=== PATIENT | male | born 1950 | race Hispanic/Latino ===

== ENCOUNTER 2018-02-24 15:15 | Emergency (ER) | payer MEDICARE ==
[~2018-02-24 15:15] MED LIST: AEC81 PO; BIMA12.5OS OD; BRIM5DRO OP; CHOL100040 PO; CINA30 PO; FAMO20TA8 PO; LOSA50TA37 PO; LOVA20TA3 PO; SEVE800T7 PO; SULF1TAB42 PO; TAMS-1 PO; VIT1TABL75 PO
[2018-02-24] MEDS ORDERED: MAG HYDROX/AL HYDROX/SIMETH ES 30 ML SUSP UDCUP ONE (16:07)
[2018-02-24] MEDS ORDERED: ONDANSETRON ODT 4 MG TAB ONE (16:08)
[2018-02-24 16:33] LABS: BASOPHILS % (AUTO) 0.3 % (0.0-5.0); EOSINOPHILS % (AUTO) 0.3 % (0.0-8.0); HEMATOCRIT 30.5 % (42-54); MEAN CORPUSCULAR HEMOGLOBIN 33.7 pg (27.0-33.0); MEAN CORPUSCULAR HGB CONC 35.8 g/dL (32.0-36.0); MEAN CORPUSCULAR VOLUME 94.2 fL (79-99); MONOCYTES % (AUTO) 6.3 % (3.0-13.0); NEUTROPHILS % (AUTO) 84.1 % (40.0-77.0); PLATELET COUNT (AUTO) 180 K/uL (130-400); RED BLOOD CELL COUNT(AUTO) 3.24 MIL/uL (4.50-6.20); RED CELL DISTRIBUTION WIDTH 14.6 % (11.0-15.5); WHITE BLOOD COUNT (AUTO) 13.9 K/uL (4.8-10.8)
[2018-02-24 16:45] LABS: CREATININE 4.9 mg/dL (0.5-1.5); POTASSIUM 4.3 mmol/L (3.5-5.1)
[2018-02-24 16:58] LABS: ALBUMIN 3.5 g/dL (3.5-5.0); BILIRUBIN,TOTAL 0.7 mg/dL (0.2-1.0); CREATINE KINASE MB 0.8 ng/mL (0.5-3.6); TOTAL PROTEIN, SERUM 7.1 g/dL (6.0-8.3)
== END 2018-02-24 18:13 | disposition home or self-care (01) ==
LOC: EDH 15:15
DX: K30 Functional dyspepsia (principal); I12.0 Hypertensive chronic kidney disease with stage 5 chronic kidney disease or end stage renal disease; E11.22 Type 2 diabetes mellitus with diabetic chronic kidney disease; N18.6 End stage renal disease; Z99.2 Dependence on renal dialysis; Z86.73 Personal history of transient ischemic attack (TIA), and cerebral infarction without residual deficits; Z87.891 Personal history of nicotine dependence
CPT/HCPCS: 36415; 80053; 82550; 82553; 83690; 84484; 85025; 86677; 93005

== ENCOUNTER 2018-02-26 07:56 | Inpatient (IN) | payer MEDICARE ==
[~2018-02-26] VITALS: Ht 167.6 cm; Wt 87.5 kg
[2018-02-26 09:21] LABS: BASOPHILS % (AUTO) 0.3 % (0.0-5.0); EOSINOPHILS % (AUTO) 0.7 % (0.0-8.0); HEMATOCRIT 29.2 % (42-54); LYMPHOCYTES % (AUTO) 8.8 % (21.0-51.0); MEAN CORPUSCULAR HEMOGLOBIN 34.1 pg (27.0-33.0); MEAN CORPUSCULAR HGB CONC 35.7 g/dL (32.0-36.0); MEAN CORPUSCULAR VOLUME 95.6 fL (79-99); MONOCYTES % (AUTO) 7.4 % (3.0-13.0); NEUTROPHILS % (AUTO) 82.8 % (40.0-77.0); PLATELET COUNT (AUTO) 202 K/uL (130-400); RED BLOOD CELL COUNT(AUTO) 3.05 MIL/uL (4.50-6.20); RED CELL DISTRIBUTION WIDTH 14.7 % (11.0-15.5); WHITE BLOOD COUNT (AUTO) 12.3 K/uL (4.8-10.8)
[2018-02-26 09:36] LABS: INR 1.05 (0.85-1.15); PARTIAL THROMBOPLASTIN TIME 29.3 SEC (26.3-35.5)
[2018-02-26 09:43] LABS: ALBUMIN 3.1 g/dL (3.5-5.0); BILIRUBIN,TOTAL 0.5 mg/dL (0.2-1.0); POTASSIUM 4.5 mmol/L (3.5-5.1); TOTAL PROTEIN, SERUM 6.8 g/dL (6.0-8.3)
[2018-02-26 09:45] LABS: CREATININE 8.5 mg/dL (0.5-1.5)
[2018-02-26 09:53] LABS: APPEARANCE,URINE Cloudy (CLEAR); BILIRUBIN,URINE Negative (NEGATIVE); COLOR,URINE Yellow (YELLOW); GLUCOSE, URINE (UA) Negative (NEGATIVE); KETONES,URINE Negative (NEGATIVE); LEUKOCYTE ESTERASE ,URINE Large (NEGATIVE); NITRATE,URINE Negative (NEGATIVE); OCCULT BLOOD,URINE Small (NEGATIVE); PROTEIN,URINE POS 2+ (NEGATIVE); UROBILINOGEN,URINE 0.2 mg/dL (0.2-1.0)
[2018-02-26 09:56] LABS: PH,URINE 8.5 (5.0-8.0)
[2018-02-26 10:07] LABS: BACTERIA,URINE Few /HPF (None Seen); SQUAMOUS EPITHELIAL CELL,UR 0-2 /HPF (0-2); WBC,URINE 51-100 /HPF (0-1)
[2018-02-26] MEDS ORDERED: METRONIDAZOLE 500MG/100ML BAG 100 ML ONE (10:52)
[2018-02-26 11:09] LABS: OCCULT BLOOD STOOL SINGLE ONLY POSITIVE (NEGATIVE)
[2018-02-26] MEDS ORDERED: LEVOFLOXACIN 500 MG/D5W 100 ML 100 ML ONE (11:55)
[2018-02-26 20:00] VITALS: BP 135/59
[2018-02-26] MEDS ORDERED: ASPI-555 PO (20:07)
[2018-02-26] MEDS ORDERED: ACETAMINOPHEN 325 MG TAB ONE (22:20)
[2018-02-26] MEDS ORDERED: GLUCAGON 1MG KIT 1 MG ML IM PRN (22:30)
[2018-02-26] MEDS ORDERED: ACETAMINOPHEN 325 MG TAB PO PRN ×2 (22:30)
[2018-02-26] MEDS ORDERED: ONDANSETRON HCL MDV 20ML 2 MG/ML VIAL IVP PRN (22:30)
[2018-02-26] MEDS ORDERED: MORPHINE SULFATE 2 MG/ML 1ML SYG IVP PRN ×2 (22:30)
[2018-02-26] MEDS ORDERED: DEXTROSE 50%-WATER 50 ML DISP.SYRIN IV PRN (22:30)
[2018-02-27] VITALS (7 sets, daily range): BP systolic 100–136; BP diastolic 51–78
[2018-02-27] MEDS: METRONIDAZOLE 500MG/100ML BAG 100 ML IVPB SCH ×3 (00:49→16:32)
[2018-02-27 04:32] LABS: HEMATOCRIT 30.5 % (42-54); MEAN CORPUSCULAR HEMOGLOBIN 32.9 pg (27.0-33.0); MEAN CORPUSCULAR HGB CONC 34.8 g/dL (32.0-36.0); MEAN CORPUSCULAR VOLUME 94.7 fL (79-99); PLATELET COUNT (AUTO) 197 K/uL (130-400); RED BLOOD CELL COUNT(AUTO) 3.22 MIL/uL (4.50-6.20); RED CELL DISTRIBUTION WIDTH 14.6 % (11.0-15.5); WHITE BLOOD COUNT (AUTO) 8.3 K/uL (4.8-10.8)
[2018-02-27 04:57] LABS: BILIRUBIN,TOTAL 0.6 mg/dL (0.2-1.0); MAGNESIUM 2.8 mg/dL (1.80-2.40); PHOSPHORUS 2.8 mg/dL (2.5-4.9); POTASSIUM 4.7 mmol/L (3.5-5.1); THYROID STIMULATING HORMONE 1.07 uIU/mL (0.36-3.74); TOTAL PROTEIN, SERUM 6.7 g/dL (6.0-8.3)
[2018-02-27 05:01] LABS: CREATININE 9.4 mg/dL (0.5-1.5)
[2018-02-27] MEDS: INSULIN R PO SS1/2 SQ SCH ×4 (06:18→20:22)
[2018-02-27] MEDS: SEVELAMER HCL 800 MG TABLET PO SCH ×2 (12:48→16:34)
[2018-02-27] MEDS: BRIMONIDINE TARTRATE OP SCH (17:00)
[2018-02-27] MEDS: TIMOLOL OP SCH (17:00)
[2018-02-27] MEDS: ***HM*** (Bimatoprost (Lumigan 0.01% Ophth Soln) 1 DROP) OD SCH (21:00)
[2018-02-27] MEDS: LEVOFLOXACIN 500 MG/D5W 100 ML 100 ML IV SCH (21:25)
[2018-02-27] MEDS: ATORVASTATIN CALCIUM 10 MG TABLET PO SCH (21:26)
[2018-02-28] MEDS: METRONIDAZOLE 500MG/100ML BAG 100 ML IVPB SCH ×3 (00:44→16:06)
[2018-02-28 03:00] VITALS: BP 122/61
[2018-02-28] MEDS: INSULIN R PO SS1/2 SQ SCH ×4 (05:31→21:00)
[2018-02-28 07:44] LABS: HEMATOCRIT 26.6 % (42-54); MEAN CORPUSCULAR HEMOGLOBIN 33.4 pg (27.0-33.0); MEAN CORPUSCULAR VOLUME 95.4 fL (79-99); PLATELET COUNT (AUTO) 192 K/uL (130-400); RED BLOOD CELL COUNT(AUTO) 2.79 MIL/uL (4.50-6.20); RED CELL DISTRIBUTION WIDTH 14.4 % (11.0-15.5); WHITE BLOOD COUNT (AUTO) 7.4 K/uL (4.8-10.8)
[2018-02-28] MEDS ORDERED: ALBUMIN (HUMAN) 25% 100 ML IV PRN (07:45)
[2018-02-28] MEDS ORDERED: SODIUM CHLORIDE 0.9% 1000ML 1,000 ML IV PRN (07:45)
[2018-02-28] MEDS ORDERED: 0.9% SODIUM CHLORIDE 250 ML IV BAG IV PRN (07:45)
[2018-02-28 07:55] LABS: ALBUMIN 2.6 g/dL (3.5-5.0); BILIRUBIN,TOTAL 0.5 mg/dL (0.2-1.0); POTASSIUM 4.4 mmol/L (3.5-5.1); TOTAL PROTEIN, SERUM 5.9 g/dL (6.0-8.3)
[2018-02-28 07:56] VITALS: BP 122/53
[2018-02-28] MEDS: BRIMONIDINE TARTRATE OP SCH ×2 (08:00→16:07)
[2018-02-28] MEDS: TIMOLOL OP SCH ×2 (08:00→16:07)
[2018-02-28 08:13] LABS: CREATININE 10.3 mg/dL (0.5-1.5)
[2018-02-28] MEDS ORDERED: ASPIRIN 81 MG EC TAB PO SCH (09:00)
[2018-02-28] MEDS: VITAMIN B COMPLEX 1 CAPSULE PO SCH (10:01)
[2018-02-28] MEDS: SEVELAMER HCL 800 MG TABLET PO SCH ×3 (10:01→16:27)
[2018-02-28] MEDS: ASPIRIN 81 MG EC TAB PO SCH (10:01)
[2018-02-28] MEDS: TAMSULOSIN HCL 0.4 MG CAP.ER.24H PO SCH (10:02)
[2018-02-28] MEDS: LOSARTAN 50 MG TABLET PO SCH (10:03)
[2018-02-28 11:38] VITALS: BP 144/66
[2018-02-28 16:00] VITALS: BP 126/74
[2018-02-28 19:45] VITALS: BP 119/58
[2018-02-28] MEDS: ATORVASTATIN CALCIUM 10 MG TABLET PO SCH (20:07)
[2018-02-28] MEDS: ***HM*** (Bimatoprost (Lumigan 0.01% Ophth Soln) 1 DROP) OD SCH (20:13)
[2018-02-28 23:05] VITALS: BP 118/56
[2018-03-01] MEDS: METRONIDAZOLE 500MG/100ML BAG 100 ML IVPB SCH ×3 (00:47→18:21)
[2018-03-01 03:55] VITALS: BP 125/59
[2018-03-01 05:00] LABS: CREATININE 6.7 mg/dL (0.5-1.5); POTASSIUM 5.8 mmol/L (3.5-5.1)
[2018-03-01 05:09] LABS: HEMATOCRIT 28.1 % (42-54); MEAN CORPUSCULAR HEMOGLOBIN 32.5 pg (27.0-33.0); MEAN CORPUSCULAR HGB CONC 34.5 g/dL (32.0-36.0); MEAN CORPUSCULAR VOLUME 94.2 fL (79-99); PLATELET COUNT (AUTO) 217 K/uL (130-400); RED BLOOD CELL COUNT(AUTO) 2.98 MIL/uL (4.50-6.20); RED CELL DISTRIBUTION WIDTH 14.7 % (11.0-15.5); WHITE BLOOD COUNT (AUTO) 7.6 K/uL (4.8-10.8)
[2018-03-01] MEDS: INSULIN R PO SS1/2 SQ SCH ×4 (06:15→21:00)
[2018-03-01] MEDS: BRIMONIDINE TARTRATE OP SCH ×2 (08:00→17:00)
[2018-03-01] MEDS: TIMOLOL OP SCH ×2 (08:00→17:00)
[2018-03-01 08:27] VITALS: BP 121/60
[2018-03-01] MEDS: VITAMIN B COMPLEX 1 CAPSULE PO SCH (08:45)
[2018-03-01] MEDS: LOSARTAN 50 MG TABLET PO SCH (08:45)
[2018-03-01] MEDS: TAMSULOSIN HCL 0.4 MG CAP.ER.24H PO SCH (08:45)
[2018-03-01] MEDS: ASPIRIN 81 MG EC TAB PO SCH (08:45)
[2018-03-01] MEDS: SEVELAMER HCL 800 MG TABLET PO SCH ×3 (08:45→17:06)
[2018-03-01 11:53] VITALS: BP 115/56
[2018-03-01 16:06] VITALS: BP 134/62
[2018-03-01 19:10] VITALS: BP 104/50
[2018-03-01] MEDS: LEVOFLOXACIN 500 MG/D5W 100 ML 100 ML IV SCH (20:07)
[2018-03-01] MEDS: ATORVASTATIN CALCIUM 10 MG TABLET PO SCH (22:16)
[2018-03-01] MEDS: ***HM*** (Bimatoprost (Lumigan 0.01% Ophth Soln) 1 DROP) OD SCH (22:21)
[2018-03-02 00:22] VITALS: BP 111/83
[2018-03-02] MEDS: METRONIDAZOLE 500MG/100ML BAG 100 ML IVPB SCH ×2 (01:05→10:31)
[2018-03-02 04:14] VITALS: BP 116/51
[2018-03-02 05:10] LABS: HEMATOCRIT 35.8 % (42-54); MEAN CORPUSCULAR HEMOGLOBIN 32.1 pg (27.0-33.0); MEAN CORPUSCULAR HGB CONC 33.7 g/dL (32.0-36.0); MEAN CORPUSCULAR VOLUME 95.4 fL (79-99); PLATELET COUNT (AUTO) 184 K/uL (130-400); RED BLOOD CELL COUNT(AUTO) 3.75 MIL/uL (4.50-6.20); RED CELL DISTRIBUTION WIDTH 14.8 % (11.0-15.5)
[2018-03-02 05:14] LABS: CREATININE 5.3 mg/dL (0.5-1.5); PHOSPHORUS 3.8 mg/dL (2.5-4.9); POTASSIUM 4.9 mmol/L (3.5-5.1)
[2018-03-02] MEDS: INSULIN R PO SS1/2 SQ SCH ×2 (07:30→11:10)
[2018-03-02] MEDS: BRIMONIDINE TARTRATE OP SCH (08:00)
[2018-03-02] MEDS: TIMOLOL OP SCH (08:00)
[2018-03-02 08:30] VITALS: BP 119/56
[2018-03-02] MEDS: VITAMIN B COMPLEX 1 CAPSULE PO SCH (10:31)
[2018-03-02] MEDS: TAMSULOSIN HCL 0.4 MG CAP.ER.24H PO SCH (10:31)
[2018-03-02] MEDS: ASPIRIN 81 MG EC TAB PO SCH (10:31)
[2018-03-02] MEDS: SEVELAMER HCL 800 MG TABLET PO SCH ×2 (10:31→12:38)
[2018-03-02] MEDS: LOSARTAN 50 MG TABLET PO SCH (10:31)
[2018-03-02 12:11] VITALS: BP 112/61
[2018-03-02 12:15] VITALS: BP 102/53
[2018-03-02] MEDS ORDERED: METR500T PO (13:59)
[2018-03-02] MEDS ORDERED: LEVO500T2 PO (13:59)
== END 2018-03-02 17:23 | disposition home or self-care (01) | DRG 391 ==
LOC: EDH 07:56 → EDHIP 11:15 → 3CH 19:39
PROVIDERS: ADMIT Internal Medicine Nephrology; ATTEND Internal Medicine Nephrology
PROC: 5A1D70Z Performance of Urinary Filtration, Intermittent, Less than 6 Hours Per Day (ICD-10-PCS; principal; 2018-02-28)
PROC: 5A1D70Z Performance of Urinary Filtration, Intermittent, Less than 6 Hours Per Day (ICD-10-PCS; 2018-03-01)
DX: K57.32 Diverticulitis of large intestine without perforation or abscess without bleeding (principal); N18.6 End stage renal disease; E11.21 Type 2 diabetes mellitus with diabetic nephropathy; E11.51 Type 2 diabetes mellitus with diabetic peripheral angiopathy without gangrene; I69.354 Hemiplegia and hemiparesis following cerebral infarction affecting left non-dominant side; I12.0 Hypertensive chronic kidney disease with stage 5 chronic kidney disease or end stage renal disease; E11.22 Type 2 diabetes mellitus with diabetic chronic kidney disease; E78.5 Hyperlipidemia, unspecified; D64.9 Anemia, unspecified; D72.829 Elevated white blood cell count, unspecified; I25.10 Atherosclerotic heart disease of native coronary artery without angina pectoris; Z99.2 Dependence on renal dialysis
CPT/HCPCS: 36415; 71045; 74176; 80048; 80053; 81001; 82150; 82270; 82550; 82553; 82948; 83690; 83735; 84100; 84443; 84484; 85025; 85027; 85610; 85730; 86677; 87046; 87177; 87205; 87324; 90935; 93005; J1956; J3490; J7030

== ENCOUNTER 2018-07-20 20:28 | Inpatient (IN) | payer MEDICARE ==
[~2018-07-20] VITALS: Ht 180.3 cm; Wt 82.2 kg
[~2018-07-20 20:28] MED LIST changes: -AEC81 PO; +ASPI-555 PO; -BIMA12.5OS OD; -BRIM5DRO OP; -CHOL100040 PO; +CHOL100046 PO; -CINA30 PO; -FAMO20TA8 PO; +FERR325T22 PO; +LOSA50TA25 PO; -LOSA50TA37 PO; -LOVA20TA3 PO; +LOVA40TA2 PO; -SULF1TAB42 PO
[2018-07-20 22:03] LABS: BASOPHILS % (AUTO) 0.3 % (0.0-5.0); HEMATOCRIT 28.6 % (42-54); LYMPHOCYTES % (AUTO) 4.6 % (21.0-51.0); MEAN CORPUSCULAR HEMOGLOBIN 30.8 pg (27.0-33.0); MEAN CORPUSCULAR VOLUME 93.4 fL (79-99); MONOCYTES % (AUTO) 7.5 % (3.0-13.0); NEUTROPHILS % (AUTO) 87.6 % (40.0-77.0); PLATELET COUNT (AUTO) 163 K/uL (130-400); RED BLOOD CELL COUNT(AUTO) 3.06 MIL/uL (4.50-6.20); RED CELL DISTRIBUTION WIDTH 15.5 % (11.0-15.5); WHITE BLOOD COUNT (AUTO) 17.1 K/uL (4.8-10.8)
[2018-07-20 22:09] LABS: APPEARANCE,URINE Clear (CLEAR); BILIRUBIN,URINE Negative (NEGATIVE); COLOR,URINE Yellow (YELLOW); GLUCOSE, URINE (UA) Negative (NEGATIVE); KETONES,URINE Negative (NEGATIVE); LEUKOCYTE ESTERASE ,URINE Moderate (NEGATIVE); NITRATE,URINE Negative (NEGATIVE); OCCULT BLOOD,URINE Moderate (NEGATIVE); PH,URINE >=9.0 (5.0-8.0); PROTEIN,URINE POS 2+ (NEGATIVE); UROBILINOGEN,URINE 0.2 mg/dL (0.2-1.0)
[2018-07-20 22:15] LABS: INR 1.1 (0.85-1.15); PARTIAL THROMBOPLASTIN TIME 31.9 SEC (26.3-35.5); PROTHROMBIN TIME 11.5 SEC (9.6-11.6)
[2018-07-20 22:20] LABS: CREATININE 7.6 mg/dL (0.5-1.5); POTASSIUM 4.7 mmol/L (3.5-5.1)
[2018-07-20] MEDS ORDERED: ZOSYN 3.375GM+NS 50ML 50 ML IV ONE (22:23)
[2018-07-20] MEDS ORDERED: SODIUM CHLORIDE 0.9% 50 ML IV ONE (22:24)
[2018-07-20] MEDS: ZOSYN 3.375GM+NS 50ML 50 ML IV SCH (22:30)
[2018-07-20 22:34] LABS: BACTERIA,URINE None Seen /HPF (None Seen); MUCUS,URINE Rare LPF (None Seen); RBC,URINE 0-1 /HPF (0-1); SQUAMOUS EPITHELIAL CELL,UR Rare /HPF (0-2)
[2018-07-20] MEDS ORDERED: VANCOMYCIN 1GM+NS 250ML 500 ML IV ONE (22:38)
[2018-07-20 22:45] LABS: ALBUMIN 3.1 g/dL (3.5-5.0); BILIRUBIN,TOTAL 0.6 mg/dL (0.2-1.0); CREATINE KINASE MB 0.7 ng/mL (0.5-3.6); TOTAL PROTEIN, SERUM 6.8 g/dL (6.0-8.3); TROPONIN I 0.07 ng/mL (0.00-0.06)
[2018-07-20] MEDS ORDERED: DEXTROSE 50%-WATER 50 ML DISP.SYRIN IV PRN (23:45)
[2018-07-20] MEDS ORDERED: VANCOMYCIN PROTOCOL PER PHARMACY IV SCH (23:45)
[2018-07-20] MEDS ORDERED: GLUCAGON 1MG KIT 1 MG ML IM PRN (23:45)
[2018-07-20] MEDS ORDERED: ONDANSETRON HCL MDV 20ML 2 MG/ML VIAL IVP PRN (23:45)
[2018-07-21] VITALS (7 sets, daily range): BP systolic 97–145; BP diastolic 43–73
[2018-07-21] MEDS: ACETAMINOPHEN 325 MG TAB PO PRN ×3 (01:23→20:22)
[2018-07-21] MEDS: INSULIN R PO SS1 SQ SCH ×4 (06:21→20:30)
[2018-07-21] MEDS: FAMOTIDINE/PF 20 MG/2 ML VIAL IV SCH (09:34)
[2018-07-21] MEDS ORDERED: FOLI0.8T22 PO (10:03)
[2018-07-21] MEDS: SEVELAMER HCL 800 MG TABLET PO SCH ×2 (12:17→16:52)
[2018-07-21] MEDS ORDERED: SODIUM CHLORIDE 0.9% 1000ML 1,000 ML IV ONE (12:32)
[2018-07-21] MEDS ORDERED: SODIUM CHLORIDE 0.9% 1000ML 1,000 ML IV PRN (13:45)
[2018-07-21] MEDS ORDERED: ALBUMIN (HUMAN) 25% 100 ML IV PRN (13:45)
[2018-07-21] MEDS ORDERED: 0.9% SODIUM CHLORIDE 250 ML IV BAG IV PRN (13:45)
[2018-07-21] MEDS: ZOSYN 3.375GM+NS 50ML 50 ML IV SCH (16:53)
[2018-07-21] MEDS: GUAIFENESIN SUGAR-FREE 100 MG/5 ML UDCUP PO PRN (20:21)
[2018-07-21] MEDS: ATORVASTATIN CALCIUM 10 MG TABLET PO SCH (20:22)
[2018-07-21] MEDS: FERROUS SULFATE 325 MG TABLET.DR PO SCH (20:22)
[2018-07-21] MEDS ORDERED: GENTAMICIN SULFATE 80 MG in SODIUM CHLORIDE 0.9% 100 ML IV SCH (23:30)
[2018-07-22] MEDS: ZOSYN 3.375GM+NS 50ML 50 ML IV SCH ×3 (00:15→23:42)
[2018-07-22] MEDS: IPRATROPIUM/ALBUTEROL SULFATE 3 ML SOLUTION IH ONE ×2 (00:57→01:39)
[2018-07-22] MEDS: GUAIFENESIN SUGAR-FREE 100 MG/5 ML UDCUP PO PRN ×3 (01:43→10:52)
[2018-07-22] MEDS: ACETAMINOPHEN 325 MG TAB PO PRN ×2 (01:44→22:57)
[2018-07-22] MEDS: IPRATROPIUM/ALBUTEROL SULFATE 3 ML SOLUTION IH SCH ×7 (02:00→21:45)
[2018-07-22] MEDS ORDERED: GENTAMICIN SULFATE 80 MG/2 ML VIAL ONE (02:16)
[2018-07-22 03:20] VITALS: BP 93/49
[2018-07-22] MEDS ORDERED: SODIUM CHLORIDE 0.9% 100 ML IV ONE (04:04)
[2018-07-22 05:36] LABS: HEMATOCRIT 25.1 % (42-54); MEAN CORPUSCULAR HGB CONC 34.3 g/dL (32.0-36.0); MEAN CORPUSCULAR VOLUME 93.4 fL (79-99); PLATELET COUNT (AUTO) 135 K/uL (130-400); RED BLOOD CELL COUNT(AUTO) 2.69 MIL/uL (4.50-6.20); RED CELL DISTRIBUTION WIDTH 15.6 % (11.0-15.5); WHITE BLOOD COUNT (AUTO) 9.2 K/uL (4.8-10.8)
[2018-07-22 05:40] LABS: BAND NEUTROPHILS % (MANUAL) 5 % (0-2); LYMPHOCYTES % (MANUAL) 10 % (22-44); MONOCYTES % (MANUAL) 9 % (2-9); SEGMENTED NEUTROPHILS % 76 % (40-70)
[2018-07-22 05:41] LABS: MAN.DIFF COMMENT-IMPRESSION MANUAL DIFFERENTIAL; PLATELET MORPHOLOGY COMMENT SLIGHTLY DECREASED
[2018-07-22 05:45] LABS: CREATININE 6.3 mg/dL (0.5-1.5); POTASSIUM 4.1 mmol/L (3.5-5.1)
[2018-07-22] MEDS: INSULIN R PO SS1 SQ SCH ×4 (06:12→20:46)
[2018-07-22] MEDS: SEVELAMER HCL 800 MG TABLET PO SCH ×3 (08:06→16:48)
[2018-07-22 08:26] VITALS: BP 94/41
[2018-07-22] MEDS: **HM** VIT D3 1000 UNITS PO SCH (09:00)
[2018-07-22] MEDS: FERROUS SULFATE 325 MG TABLET.DR PO SCH ×2 (09:54→20:46)
[2018-07-22] MEDS: LOSARTAN 50 MG TABLET PO SCH (09:54)
[2018-07-22] MEDS: FOLIC ACID/VITAMIN B COMP W-C 1 MG CAPSULE PO SCH (09:54)
[2018-07-22] MEDS: FAMOTIDINE/PF 20 MG/2 ML VIAL IV SCH (09:55)
[2018-07-22] MEDS: TAMSULOSIN HCL 0.4 MG CAP.ER.24H PO SCH (09:55)
[2018-07-22] MEDS: ASPIRIN 81MG TAB.CHEW PO SCH (09:58)
[2018-07-22] MEDS: ENOXAPARIN SODIUM 30 MG/0.3 ML SQ SCH (10:03)
[2018-07-22 12:01] VITALS: BP 106/57
[2018-07-22 16:05] VITALS: BP 120/79
[2018-07-22 19:28] VITALS: BP 117/55
[2018-07-22] MEDS: ATORVASTATIN CALCIUM 10 MG TABLET PO SCH (20:46)
[2018-07-22 23:26] VITALS: BP 105/49
[2018-07-23] MEDS: IPRATROPIUM/ALBUTEROL SULFATE 3 ML SOLUTION IH SCH ×6 (02:22→21:27)
[2018-07-23 03:28] VITALS: BP 81/39
[2018-07-23 06:04] LABS: MEAN CORPUSCULAR HEMOGLOBIN 32.4 pg (27.0-33.0); MEAN CORPUSCULAR HGB CONC 34.8 g/dL (32.0-36.0); MEAN CORPUSCULAR VOLUME 93.2 fL (79-99); PLATELET COUNT (AUTO) 162 K/uL (130-400); RED BLOOD CELL COUNT(AUTO) 2.57 MIL/uL (4.50-6.20); RED CELL DISTRIBUTION WIDTH 15.8 % (11.0-15.5); WHITE BLOOD COUNT (AUTO) 8.3 K/uL (4.8-10.8)
[2018-07-23 06:22] LABS: ALBUMIN 2.1 g/dL (3.5-5.0); BILIRUBIN,DIRECT 0.2 mg/dL (0.0-0.3); BILIRUBIN,TOTAL 0.6 mg/dL (0.2-1.0); POTASSIUM 4.1 mmol/L (3.5-5.1); TOTAL PROTEIN, SERUM 5.9 g/dL (6.0-8.3)
[2018-07-23 06:25] LABS: CREATININE 8.2 mg/dL (0.5-1.5)
[2018-07-23] MEDS: INSULIN R PO SS1 SQ SCH ×4 (06:53→20:36)
[2018-07-23 07:30] VITALS: BP 121/59
[2018-07-23 08:19] LABS: BASOPHILS % (MANUAL) 1 % (0-2); EOSINOPHILS % (MANUAL) 2 % (1-6); LYMPHOCYTES % (MANUAL) 10 % (22-44); MAN.DIFF COMMENT-IMPRESSION MANUAL DIFFERENTIAL; MONOCYTES % (MANUAL) 7 % (2-9); PLATELET MORPHOLOGY COMMENT ADEQUATE; SEGMENTED NEUTROPHILS % 80 % (40-70)
[2018-07-23] MEDS: **HM** VIT D3 1000 UNITS PO SCH (09:00)
[2018-07-23] MEDS: TAMSULOSIN HCL 0.4 MG CAP.ER.24H PO SCH (09:01)
[2018-07-23] MEDS: LOSARTAN 50 MG TABLET PO SCH (09:01)
[2018-07-23] MEDS: SEVELAMER HCL 800 MG TABLET PO SCH ×3 (09:01→17:24)
[2018-07-23] MEDS: FAMOTIDINE/PF 20 MG/2 ML VIAL IV SCH (09:01)
[2018-07-23] MEDS: ASPIRIN 81MG TAB.CHEW PO SCH (09:01)
[2018-07-23] MEDS: FERROUS SULFATE 325 MG TABLET.DR PO SCH ×2 (09:01→20:35)
[2018-07-23] MEDS: FOLIC ACID/VITAMIN B COMP W-C 1 MG CAPSULE PO SCH (09:01)
[2018-07-23] MEDS: ENOXAPARIN SODIUM 30 MG/0.3 ML SQ SCH (09:02)
[2018-07-23] MEDS ORDERED: VANCOMYCIN 1.25 GM in SODIUM CHLORIDE 0.9% 250 ML IV SCH (09:45)
[2018-07-23 11:00] VITALS: BP 109/53
[2018-07-23] MEDS: ZOSYN 3.375GM+NS 50ML 50 ML IV SCH ×2 (12:15→23:35)
[2018-07-23 16:00] VITALS: BP 111/68
[2018-07-23] MEDS: GUAIFENESIN SUGAR-FREE 100 MG/5 ML UDCUP PO PRN (19:14)
[2018-07-23 20:00] VITALS: BP 112/53
[2018-07-23] MEDS: ATORVASTATIN CALCIUM 10 MG TABLET PO SCH (20:35)
[2018-07-23] MEDS: ACETAMINOPHEN 325 MG TAB PO PRN (20:37)
[2018-07-24] VITALS: BP 124/56
[2018-07-24] MEDS: IPRATROPIUM/ALBUTEROL SULFATE 3 ML SOLUTION IH SCH ×6 (01:23→21:13)
[2018-07-24 04:00] VITALS: BP 119/58
[2018-07-24] MEDS: GUAIFENESIN SUGAR-FREE 100 MG/5 ML UDCUP PO PRN ×4 (04:04→20:22)
[2018-07-24] MEDS: ACETAMINOPHEN 325 MG TAB PO PRN ×3 (04:05→20:24)
[2018-07-24 05:13] LABS: HEMATOCRIT 24.4 % (42-54); MEAN CORPUSCULAR HEMOGLOBIN 31.6 pg (27.0-33.0); PLATELET COUNT (AUTO) 150 K/uL (130-400); RED BLOOD CELL COUNT(AUTO) 2.62 MIL/uL (4.50-6.20); RED CELL DISTRIBUTION WIDTH 15.5 % (11.0-15.5); WHITE BLOOD COUNT (AUTO) 8.6 K/uL (4.8-10.8)
[2018-07-24 05:26] LABS: POTASSIUM 4.4 mmol/L (3.5-5.1)
[2018-07-24 05:39] LABS: CREATININE 9.8 mg/dL (0.5-1.5)
[2018-07-24] MEDS: INSULIN R PO SS1 SQ SCH ×4 (05:53→20:44)
[2018-07-24 07:30] VITALS: BP 110/58
[2018-07-24] MEDS: SEVELAMER HCL 800 MG TABLET PO SCH ×3 (08:00→15:54)
[2018-07-24] MEDS: **HM** VIT D3 1000 UNITS PO SCH (08:19)
[2018-07-24 11:00] VITALS: BP 134/64
[2018-07-24] MEDS: FOLIC ACID/VITAMIN B COMP W-C 1 MG CAPSULE PO SCH (11:57)
[2018-07-24] MEDS: TAMSULOSIN HCL 0.4 MG CAP.ER.24H PO SCH (11:57)
[2018-07-24] MEDS: FERROUS SULFATE 325 MG TABLET.DR PO SCH ×2 (11:57→20:22)
[2018-07-24] MEDS: ZOSYN 3.375GM+NS 50ML 50 ML IV SCH (11:57)
[2018-07-24] MEDS: ASPIRIN 81MG TAB.CHEW PO SCH (11:57)
[2018-07-24] MEDS: LOSARTAN 50 MG TABLET PO SCH (11:57)
[2018-07-24] MEDS: ENOXAPARIN SODIUM 30 MG/0.3 ML SQ SCH (11:58)
[2018-07-24] MEDS: FAMOTIDINE/PF 20 MG/2 ML VIAL IV SCH (12:05)
[2018-07-24 16:00] VITALS: BP 120/65
[2018-07-24] MEDS ORDERED: GENTAMICIN 80 MG/NS 100 ML PB 100 ML IV SCH ×2 (19:15→20:01)
[2018-07-24] MEDS ORDERED: LACTULOSE 20 GM/30 ML UDCUP PO PRN (19:15)
[2018-07-24 20:00] VITALS: BP 102/51
[2018-07-24] MEDS: ATORVASTATIN CALCIUM 10 MG TABLET PO SCH (20:22)
[2018-07-25] VITALS (7 sets, daily range): BP systolic 107–142; BP diastolic 49–76
[2018-07-25] MEDS: GUAIFENESIN SUGAR-FREE 100 MG/5 ML UDCUP PO PRN ×3 (00:34→20:14)
[2018-07-25] MEDS: IPRATROPIUM/ALBUTEROL SULFATE 3 ML SOLUTION IH SCH ×6 (01:34→21:30)
[2018-07-25] MEDS: ACETAMINOPHEN 325 MG TAB PO PRN ×3 (05:24→23:44)
[2018-07-25] MEDS: INSULIN R PO SS1 SQ SCH ×4 (06:23→20:20)
[2018-07-25 08:40] LABS: HEMATOCRIT 26.1 % (42-54); MEAN CORPUSCULAR HEMOGLOBIN 31.6 pg (27.0-33.0); MEAN CORPUSCULAR HGB CONC 34.2 g/dL (32.0-36.0); MEAN CORPUSCULAR VOLUME 92.4 fL (79-99); PLATELET COUNT (AUTO) 210 K/uL (130-400); RED BLOOD CELL COUNT(AUTO) 2.82 MIL/uL (4.50-6.20); RED CELL DISTRIBUTION WIDTH 15.8 % (11.0-15.5); WHITE BLOOD COUNT (AUTO) 9.1 K/uL (4.8-10.8)
[2018-07-25 08:46] LABS: CREATININE 7.2 mg/dL (0.5-1.5); POTASSIUM 4.4 mmol/L (3.5-5.1)
[2018-07-25] MEDS: **HM** VIT D3 1000 UNITS PO SCH (09:00)
[2018-07-25 09:38] LABS: BASOPHILS % (MANUAL) 1 % (0-2); EOSINOPHILS % (MANUAL) 2 % (1-6); LYMPHOCYTES % (MANUAL) 9 % (22-44); MONOCYTES % (MANUAL) 9 % (2-9); SEGMENTED NEUTROPHILS % 79 % (40-70)
[2018-07-25 09:39] LABS: MAN.DIFF COMMENT-IMPRESSION MANUAL DIFFERENTIAL
[2018-07-25] MEDS: FOLIC ACID/VITAMIN B COMP W-C 1 MG CAPSULE PO SCH (09:56)
[2018-07-25] MEDS: FAMOTIDINE/PF 20 MG/2 ML VIAL IV SCH (09:56)
[2018-07-25] MEDS: ASPIRIN 81MG TAB.CHEW PO SCH (09:56)
[2018-07-25] MEDS: TAMSULOSIN HCL 0.4 MG CAP.ER.24H PO SCH (09:56)
[2018-07-25] MEDS: FERROUS SULFATE 325 MG TABLET.DR PO SCH ×2 (09:56→20:06)
[2018-07-25] MEDS: LOSARTAN 50 MG TABLET PO SCH (09:56)
[2018-07-25] MEDS: SEVELAMER HCL 800 MG TABLET PO SCH ×3 (09:57→17:13)
[2018-07-25] MEDS: ENOXAPARIN SODIUM 30 MG/0.3 ML SQ SCH (09:58)
[2018-07-25] MEDS: ATORVASTATIN CALCIUM 10 MG TABLET PO SCH (20:06)
[2018-07-26] MEDS: IPRATROPIUM/ALBUTEROL SULFATE 3 ML SOLUTION IH SCH ×6 (01:14→22:18)
[2018-07-26 03:58] VITALS: BP 140/74
[2018-07-26] MEDS: INSULIN R PO SS1 SQ SCH ×4 (06:04→21:00)
[2018-07-26 07:08] LABS: CREATININE 7.1 mg/dL (0.5-1.5); POTASSIUM 3.8 mmol/L (3.5-5.1)
[2018-07-26 07:20] LABS: HEMATOCRIT 25.4 % (42-54); MEAN CORPUSCULAR HEMOGLOBIN 30.9 pg (27.0-33.0); MEAN CORPUSCULAR HGB CONC 33.4 g/dL (32.0-36.0); MEAN CORPUSCULAR VOLUME 92.7 fL (79-99); PLATELET COUNT (AUTO) 210 K/uL (130-400); RED BLOOD CELL COUNT(AUTO) 2.74 MIL/uL (4.50-6.20); RED CELL DISTRIBUTION WIDTH 15.9 % (11.0-15.5); WHITE BLOOD COUNT (AUTO) 4.8 K/uL (4.8-10.8)
[2018-07-26 08:14] VITALS: BP 163/78
[2018-07-26] MEDS: **HM** VIT D3 1000 UNITS PO SCH (09:00)
[2018-07-26] MEDS: ASPIRIN 81MG TAB.CHEW PO SCH (10:46)
[2018-07-26] MEDS: SEVELAMER HCL 800 MG TABLET PO SCH ×3 (10:46→17:27)
[2018-07-26] MEDS: FAMOTIDINE/PF 20 MG/2 ML VIAL IV SCH (10:47)
[2018-07-26] MEDS: TAMSULOSIN HCL 0.4 MG CAP.ER.24H PO SCH (10:47)
[2018-07-26] MEDS: FERROUS SULFATE 325 MG TABLET.DR PO SCH ×2 (10:47→21:07)
[2018-07-26] MEDS: LOSARTAN 50 MG TABLET PO SCH (10:47)
[2018-07-26] MEDS: GUAIFENESIN SUGAR-FREE 100 MG/5 ML UDCUP PO PRN ×2 (10:48→21:07)
[2018-07-26] MEDS: FOLIC ACID/VITAMIN B COMP W-C 1 MG CAPSULE PO SCH (10:50)
[2018-07-26] MEDS: ENOXAPARIN SODIUM 30 MG/0.3 ML SQ SCH (10:56)
[2018-07-26 12:06] VITALS: BP 133/67
[2018-07-26] MEDS: ACETAMINOPHEN 325 MG TAB PO PRN ×2 (14:47→21:08)
[2018-07-26 17:06] VITALS: BP 123/60
[2018-07-26 19:19] VITALS: BP 120/56
[2018-07-26] MEDS: ATORVASTATIN CALCIUM 10 MG TABLET PO SCH (21:07)
[2018-07-26] MEDS ORDERED: IOHEXOL-350 75 ML VIAL IV ONE (21:11)
[2018-07-26 23:51] VITALS: BP 132/80
[2018-07-27] VITALS (10 sets, daily range): BP systolic 113–149; BP diastolic 57–101
[2018-07-27] MEDS: IPRATROPIUM/ALBUTEROL SULFATE 3 ML SOLUTION IH SCH ×6 (02:23→21:27)
[2018-07-27 04:46] LABS: HEMATOCRIT 26.9 % (42-54); MEAN CORPUSCULAR HEMOGLOBIN 31.8 pg (27.0-33.0); MEAN CORPUSCULAR HGB CONC 34.4 g/dL (32.0-36.0); MEAN CORPUSCULAR VOLUME 92.4 fL (79-99); PLATELET COUNT (AUTO) 288 K/uL (130-400); RED BLOOD CELL COUNT(AUTO) 2.91 MIL/uL (4.50-6.20); RED CELL DISTRIBUTION WIDTH 15.9 % (11.0-15.5); WHITE BLOOD COUNT (AUTO) 10.6 K/uL (4.8-10.8)
[2018-07-27 04:55] LABS: CREATININE 5.9 mg/dL (0.5-1.5); POTASSIUM 3.9 mmol/L (3.5-5.1)
[2018-07-27] MEDS: INSULIN R PO SS1 SQ SCH ×4 (05:51→21:00)
[2018-07-27] MEDS: SEVELAMER HCL 800 MG TABLET PO SCH ×3 (08:00→17:00)
[2018-07-27] MEDS ORDERED: VANCOMYCIN 1.25 GM in SODIUM CHLORIDE 0.9% 250 ML IV SCH (09:00)
[2018-07-27] MEDS: **HM** VIT D3 1000 UNITS PO SCH (09:00)
[2018-07-27] MEDS: FOLIC ACID/VITAMIN B COMP W-C 1 MG CAPSULE PO SCH (10:28)
[2018-07-27] MEDS: TAMSULOSIN HCL 0.4 MG CAP.ER.24H PO SCH (10:28)
[2018-07-27] MEDS: ASPIRIN 81MG TAB.CHEW PO SCH (10:29)
[2018-07-27] MEDS: FERROUS SULFATE 325 MG TABLET.DR PO SCH ×2 (10:29→21:12)
[2018-07-27] MEDS: LOSARTAN 50 MG TABLET PO SCH (10:29)
[2018-07-27] MEDS: FAMOTIDINE/PF 20 MG/2 ML VIAL IV SCH (10:30)
[2018-07-27] MEDS: ENOXAPARIN SODIUM 30 MG/0.3 ML SQ SCH (10:31)
[2018-07-27] MEDS ORDERED: PHARMACY COMMUNICATION MISC SCH ×2 (15:15)
[2018-07-27] MEDS ORDERED: LIDOCAINE HCL 2% VISCOUS 15 ML UDCUP ONE (15:20)
[2018-07-27] MEDS ORDERED: FENTANYL CITRATE PF 50 MCG/1 ML 2ML VIAL ONE (15:20)
[2018-07-27] MEDS ORDERED: MIDAZOLAM HCL 1 MG/ML 2ML VIAL ONE (15:21)
[2018-07-27] MEDS ORDERED: GENTAMICIN PROTOCOL PER PHARMACY IV SCH (17:00)
[2018-07-27] MEDS ORDERED: GENTAMICIN SULFATE 160 MG in SODIUM CHLORIDE 0.9% 100 ML IV SCH (17:15)
[2018-07-27] MEDS ORDERED: GENTAMICIN SULFATE 160 MG in SODIUM CHLORIDE 0.9% 100 ML IV ONE (18:00)
[2018-07-27] MEDS: CEFTAROLINE FOSAMIL ACETATE IV SCH (21:11)
[2018-07-27] MEDS: SODIUM CHLORIDE 0.9% IV SCH (21:11)
[2018-07-27] MEDS: ATORVASTATIN CALCIUM 10 MG TABLET PO SCH (21:12)
[2018-07-27] MEDS: ACETAMINOPHEN 325 MG TAB PO PRN (21:13)
[2018-07-28 00:15] VITALS: BP 145/80
[2018-07-28] MEDS: IPRATROPIUM/ALBUTEROL SULFATE 3 ML SOLUTION IH SCH ×6 (01:25→21:50)
[2018-07-28 04:12] VITALS: BP 128/77
[2018-07-28 05:12] LABS: HEMATOCRIT 25.3 % (42-54); MEAN CORPUSCULAR HEMOGLOBIN 31.2 pg (27.0-33.0); MEAN CORPUSCULAR HGB CONC 33.5 g/dL (32.0-36.0); MEAN CORPUSCULAR VOLUME 93.1 fL (79-99); NUCLEATED RED BLOOD CELLS 0.1 % (0.0-0.19); PLATELET COUNT (AUTO) 64 K/uL (130-400); RED BLOOD CELL COUNT(AUTO) 2.71 MIL/uL (4.50-6.20); RED CELL DISTRIBUTION WIDTH 15.9 % (11.0-15.5)
[2018-07-28 05:28] LABS: ALBUMIN 2.1 g/dL (3.5-5.0); BILIRUBIN,TOTAL 0.8 mg/dL (0.2-1.0); CREATININE 7.5 mg/dL (0.5-1.5); TOTAL PROTEIN, SERUM 6.1 g/dL (6.0-8.3)
[2018-07-28 05:32] LABS: BAND NEUTROPHILS % (MANUAL) 1 % (0-2); LYMPHOCYTES % (MANUAL) 16 % (22-44); MAN.DIFF COMMENT-IMPRESSION MANUAL DIFFERENTIAL; MONOCYTES % (MANUAL) 13 % (2-9); SEGMENTED NEUTROPHILS % 70 % (40-70)
[2018-07-28 05:33] LABS: PLATELET MORPHOLOGY COMMENT ADEQUATE
[2018-07-28 05:42] LABS: POTASSIUM 4.9 mmol/L (3.5-5.1)
[2018-07-28] MEDS: SODIUM CHLORIDE 0.9% IV SCH ×2 (05:45→17:22)
[2018-07-28] MEDS: CEFTAROLINE FOSAMIL ACETATE IV SCH ×2 (05:45→17:22)
[2018-07-28] MEDS: INSULIN R PO SS1 SQ SCH ×4 (06:43→20:52)
[2018-07-28] MEDS ORDERED: CEFTAROLINE FOSAMIL ACETATE IV SCH (06:55)
[2018-07-28] MEDS ORDERED: SODIUM CHLORIDE 0.9% IV SCH (06:55)
[2018-07-28 08:00] VITALS: BP 172/79
[2018-07-28] MEDS: FOLIC ACID/VITAMIN B COMP W-C 1 MG CAPSULE PO SCH (08:26)
[2018-07-28] MEDS: ASPIRIN 81MG TAB.CHEW PO SCH (08:26)
[2018-07-28] MEDS: SEVELAMER HCL 800 MG TABLET PO SCH ×3 (08:26→17:22)
[2018-07-28] MEDS: TAMSULOSIN HCL 0.4 MG CAP.ER.24H PO SCH (08:26)
[2018-07-28] MEDS: FAMOTIDINE/PF 20 MG/2 ML VIAL IV SCH (08:26)
[2018-07-28] MEDS: LOSARTAN 50 MG TABLET PO SCH (08:26)
[2018-07-28] MEDS: FERROUS SULFATE 325 MG TABLET.DR PO SCH ×2 (08:26→20:05)
[2018-07-28] MEDS: **HM** VIT D3 1000 UNITS PO SCH (09:00)
[2018-07-28] MEDS: ENOXAPARIN SODIUM 30 MG/0.3 ML SQ SCH (09:00)
[2018-07-28 12:00] VITALS: BP 133/63
[2018-07-28] MEDS ORDERED: COMPOUND IV MISC 1 EACH IVSOLN MISC PRN (12:00)
[2018-07-28] MEDS ORDERED: GENTAMICIN SULFATE 80 MG in SODIUM CHLORIDE 0.9% 100 ML IV SCH (15:37)
[2018-07-28 16:00] VITALS: BP 144/72
[2018-07-28 20:00] VITALS: BP 154/66
[2018-07-28] MEDS: ATORVASTATIN CALCIUM 10 MG TABLET PO SCH (20:05)
[2018-07-28] MEDS ORDERED: SODIUM CHLORIDE 3% FOR INHALATION 4 ML/AMP VIAL.NEB IH ONE (22:08)
[2018-07-28] MEDS: GUAIFENESIN SUGAR-FREE 100 MG/5 ML UDCUP PO PRN (22:54)
[2018-07-28] MEDS: ACETAMINOPHEN 325 MG TAB PO PRN (22:55)
[2018-07-29] VITALS: BP 148/70
[2018-07-29] MEDS ORDERED: SODIUM CHLORIDE 3% FOR INHALATION 4 ML/AMP VIAL.NEB IH ONE ×2 (02:25→06:08)
[2018-07-29] MEDS: IPRATROPIUM/ALBUTEROL SULFATE 3 ML SOLUTION IH SCH ×6 (02:30→22:49)
[2018-07-29 04:00] VITALS: BP 156/75
[2018-07-29] MEDS: CEFTAROLINE FOSAMIL ACETATE IV SCH ×2 (05:06→18:34)
[2018-07-29] MEDS: SODIUM CHLORIDE 0.9% IV SCH ×2 (05:06→18:34)
[2018-07-29 05:49] LABS: HEMATOCRIT 24.3 % (42-54); MEAN CORPUSCULAR HEMOGLOBIN 31.7 pg (27.0-33.0); MEAN CORPUSCULAR HGB CONC 34.2 g/dL (32.0-36.0); MEAN CORPUSCULAR VOLUME 92.8 fL (79-99); PLATELET COUNT (AUTO) 256 K/uL (130-400); RED BLOOD CELL COUNT(AUTO) 2.62 MIL/uL (4.50-6.20); RED CELL DISTRIBUTION WIDTH 16.1 % (11.0-15.5)
[2018-07-29 05:58] LABS: CREATININE 5.7 mg/dL (0.5-1.5); POTASSIUM 3.7 mmol/L (3.5-5.1)
[2018-07-29] MEDS: INSULIN R PO SS1 SQ SCH ×4 (06:35→21:00)
[2018-07-29 07:00] VITALS: BP 157/75
[2018-07-29] MEDS: SEVELAMER HCL 800 MG TABLET PO SCH ×3 (08:00→17:04)
[2018-07-29] MEDS: **HM** VIT D3 1000 UNITS PO SCH (09:00)
[2018-07-29] MEDS: ASPIRIN 81MG TAB.CHEW PO SCH (10:42)
[2018-07-29] MEDS: LOSARTAN 50 MG TABLET PO SCH (10:42)
[2018-07-29] MEDS: FAMOTIDINE/PF 20 MG/2 ML VIAL IV SCH (10:42)
[2018-07-29] MEDS: TAMSULOSIN HCL 0.4 MG CAP.ER.24H PO SCH (10:42)
[2018-07-29] MEDS: FERROUS SULFATE 325 MG TABLET.DR PO SCH ×2 (10:43→21:39)
[2018-07-29] MEDS: FOLIC ACID/VITAMIN B COMP W-C 1 MG CAPSULE PO SCH (10:43)
[2018-07-29] MEDS: ENOXAPARIN SODIUM 30 MG/0.3 ML SQ SCH (10:43)
[2018-07-29 11:00] VITALS: BP 142/58
[2018-07-29] MEDS ORDERED: GENTAMICIN SULFATE 80 MG in SODIUM CHLORIDE 0.9% 100 ML IV NR (11:21)
[2018-07-29 16:00] VITALS: BP 149/74
[2018-07-29 20:00] VITALS: BP 139/73
[2018-07-29] MEDS: ATORVASTATIN CALCIUM 10 MG TABLET PO SCH (21:39)
[2018-07-30] VITALS (7 sets, daily range): BP systolic 131–159; BP diastolic 65–77
[2018-07-30] MEDS: IPRATROPIUM/ALBUTEROL SULFATE 3 ML SOLUTION IH SCH ×6 (02:25→21:25)
[2018-07-30 05:44] LABS: HEMATOCRIT 23.7 % (42-54); MEAN CORPUSCULAR HGB CONC 34.6 g/dL (32.0-36.0); MEAN CORPUSCULAR VOLUME 92.7 fL (79-99); PLATELET COUNT (AUTO) 281 K/uL (130-400); RED BLOOD CELL COUNT(AUTO) 2.55 MIL/uL (4.50-6.20); RED CELL DISTRIBUTION WIDTH 15.7 % (11.0-15.5); WHITE BLOOD COUNT (AUTO) 8.8 K/uL (4.8-10.8)
[2018-07-30 06:01] LABS: ALBUMIN 2.1 g/dL (3.5-5.0); BILIRUBIN,TOTAL 0.6 mg/dL (0.2-1.0); CREATININE 7.3 mg/dL (0.5-1.5); POTASSIUM 3.9 mmol/L (3.5-5.1); TOTAL PROTEIN, SERUM 6.1 g/dL (6.0-8.3)
[2018-07-30] MEDS: SODIUM CHLORIDE 0.9% IV SCH ×2 (06:26→18:31)
[2018-07-30] MEDS: CEFTAROLINE FOSAMIL ACETATE IV SCH ×2 (06:26→18:31)
[2018-07-30] MEDS: INSULIN R PO SS1 SQ SCH ×4 (06:26→21:00)
[2018-07-30] MEDS: TAMSULOSIN HCL 0.4 MG CAP.ER.24H PO SCH (08:43)
[2018-07-30] MEDS: LOSARTAN 50 MG TABLET PO SCH (08:43)
[2018-07-30] MEDS: SEVELAMER HCL 800 MG TABLET PO SCH ×3 (08:43→16:51)
[2018-07-30] MEDS: FERROUS SULFATE 325 MG TABLET.DR PO SCH ×2 (08:43→21:30)
[2018-07-30] MEDS: FOLIC ACID/VITAMIN B COMP W-C 1 MG CAPSULE PO SCH (08:43)
[2018-07-30] MEDS: FAMOTIDINE/PF 20 MG/2 ML VIAL IV SCH (08:43)
[2018-07-30] MEDS: ENOXAPARIN SODIUM 30 MG/0.3 ML SQ SCH (08:44)
[2018-07-30] MEDS: **HM** VIT D3 1000 UNITS PO SCH (08:44)
[2018-07-30] MEDS: ASPIRIN 81MG TAB.CHEW PO SCH (08:44)
[2018-07-30] MEDS ORDERED: GENTAMICIN SULFATE 80 MG in SODIUM CHLORIDE 0.9% 100 ML IV NR (11:26)
[2018-07-30] MEDS ORDERED: LOPERAMIDE HCL 2 MG CAP PO SCH (16:15)
[2018-07-30] MEDS ORDERED: KETOROLAC TROMETHAMINE 15MG/ML IV PRN (16:15)
[2018-07-30] MEDS: ATORVASTATIN CALCIUM 10 MG TABLET PO SCH (21:30)
[2018-07-31] MEDS: IPRATROPIUM/ALBUTEROL SULFATE 3 ML SOLUTION IH SCH ×5 (01:09→21:10)
[2018-07-31 03:44] VITALS: BP 132/71
[2018-07-31] MEDS: SODIUM CHLORIDE 0.9% IV SCH ×2 (05:37→19:34)
[2018-07-31] MEDS: CEFTAROLINE FOSAMIL ACETATE IV SCH ×2 (05:37→19:34)
[2018-07-31 05:46] LABS: INR 1.1 (0.85-1.15); PARTIAL THROMBOPLASTIN TIME 26.8 SEC (26.3-35.5); PROTHROMBIN TIME 11.5 SEC (9.6-11.6)
[2018-07-31] MEDS: INSULIN R PO SS1 SQ SCH ×4 (06:12→21:00)
[2018-07-31] MEDS: ACETAMINOPHEN 325 MG TAB PO PRN (06:52)
[2018-07-31] MEDS: SEVELAMER HCL 800 MG TABLET PO SCH ×3 (08:00→16:28)
[2018-07-31 08:17] VITALS: BP 135/84
[2018-07-31] MEDS: ASPIRIN 81MG TAB.CHEW PO SCH ×2 (09:00→13:57)
[2018-07-31] MEDS: **HM** VIT D3 1000 UNITS PO SCH (09:00)
[2018-07-31] MEDS: LOSARTAN 50 MG TABLET PO SCH (09:00)
[2018-07-31] MEDS: ENOXAPARIN SODIUM 30 MG/0.3 ML SQ SCH ×2 (09:00→14:07)
[2018-07-31 11:25] VITALS: BP 138/77
[2018-07-31] MEDS: FOLIC ACID/VITAMIN B COMP W-C 1 MG CAPSULE PO SCH (13:57)
[2018-07-31] MEDS: FERROUS SULFATE 325 MG TABLET.DR PO SCH ×2 (13:58→20:02)
[2018-07-31] MEDS: TAMSULOSIN HCL 0.4 MG CAP.ER.24H PO SCH (13:58)
[2018-07-31] MEDS: FAMOTIDINE/PF 20 MG/2 ML VIAL IV SCH (14:00)
[2018-07-31] MEDS: GENTAMICIN SULFATE 80 MG in SODIUM CHLORIDE 0.9% 100 ML IV NR (16:34)
[2018-07-31 16:37] VITALS: BP 129/78
[2018-07-31 19:22] VITALS: BP 122/57
[2018-07-31] MEDS: ATORVASTATIN CALCIUM 10 MG TABLET PO SCH (20:02)
[2018-07-31 23:17] VITALS: BP 132/62
[2018-08-01] MEDS: IPRATROPIUM/ALBUTEROL SULFATE 3 ML SOLUTION IH SCH ×6 (01:07→22:14)
[2018-08-01 03:43] VITALS: BP 132/70
[2018-08-01] MEDS: SODIUM CHLORIDE 0.9% IV SCH ×2 (05:04→19:50)
[2018-08-01] MEDS: CEFTAROLINE FOSAMIL ACETATE IV SCH ×2 (05:04→19:50)
[2018-08-01 05:31] LABS: HEMATOCRIT 24.3 % (42-54); MEAN CORPUSCULAR HEMOGLOBIN 31.7 pg (27.0-33.0); MEAN CORPUSCULAR HGB CONC 34.2 g/dL (32.0-36.0); MEAN CORPUSCULAR VOLUME 92.7 fL (79-99); PLATELET COUNT (AUTO) 310 K/uL (130-400); RED BLOOD CELL COUNT(AUTO) 2.62 MIL/uL (4.50-6.20); RED CELL DISTRIBUTION WIDTH 15.4 % (11.0-15.5); WHITE BLOOD COUNT (AUTO) 10.8 K/uL (4.8-10.8)
[2018-08-01 05:39] LABS: CREATININE 6.2 mg/dL (0.5-1.5); POTASSIUM 3.7 mmol/L (3.5-5.1)
[2018-08-01] MEDS: INSULIN R PO SS1 SQ SCH ×4 (06:12→20:59)
[2018-08-01] MEDS: ACETAMINOPHEN 325 MG TAB PO PRN (06:27)
[2018-08-01 08:00] VITALS: BP 140/70
[2018-08-01] MEDS: SEVELAMER HCL 800 MG TABLET PO SCH ×3 (08:43→17:10)
[2018-08-01] MEDS: TAMSULOSIN HCL 0.4 MG CAP.ER.24H PO SCH (08:45)
[2018-08-01] MEDS: FOLIC ACID/VITAMIN B COMP W-C 1 MG CAPSULE PO SCH (08:45)
[2018-08-01] MEDS: FERROUS SULFATE 325 MG TABLET.DR PO SCH ×2 (08:45→20:59)
[2018-08-01] MEDS: ENOXAPARIN SODIUM 30 MG/0.3 ML SQ SCH (08:45)
[2018-08-01] MEDS: **HM** VIT D3 1000 UNITS PO SCH (08:45)
[2018-08-01] MEDS: LOSARTAN 50 MG TABLET PO SCH (08:45)
[2018-08-01] MEDS: FAMOTIDINE/PF 20 MG/2 ML VIAL IV SCH (08:45)
[2018-08-01] MEDS: ASPIRIN 81MG TAB.CHEW PO SCH (08:46)
[2018-08-01 12:00] VITALS: BP 120/57
[2018-08-01 15:44] VITALS: BP 138/58
[2018-08-01 20:00] VITALS: BP 136/68
[2018-08-01] MEDS: ATORVASTATIN CALCIUM 10 MG TABLET PO SCH (20:59)
[2018-08-02] VITALS: BP 158/74
[2018-08-02] MEDS: IPRATROPIUM/ALBUTEROL SULFATE 3 ML SOLUTION IH SCH ×6 (01:56→21:41)
[2018-08-02 04:00] VITALS: BP 138/64
[2018-08-02 04:55] LABS: POTASSIUM 4.1 mmol/L (3.5-5.1)
[2018-08-02 04:58] LABS: HEMATOCRIT 24.5 % (42-54); MEAN CORPUSCULAR HEMOGLOBIN 30.5 pg (27.0-33.0); MEAN CORPUSCULAR HGB CONC 32.9 g/dL (32.0-36.0); MEAN CORPUSCULAR VOLUME 92.7 fL (79-99); PLATELET COUNT (AUTO) 256 K/uL (130-400); RED BLOOD CELL COUNT(AUTO) 2.65 MIL/uL (4.50-6.20); RED CELL DISTRIBUTION WIDTH 15.8 % (11.0-15.5); WHITE BLOOD COUNT (AUTO) 12.1 K/uL (4.8-10.8)
[2018-08-02 05:03] LABS: CREATININE 7.9 mg/dL (0.5-1.5)
[2018-08-02] MEDS: CEFTAROLINE FOSAMIL ACETATE IV SCH ×2 (05:50→20:20)
[2018-08-02] MEDS: SODIUM CHLORIDE 0.9% IV SCH ×2 (05:50→20:20)
[2018-08-02] MEDS: INSULIN R PO SS1 SQ SCH ×4 (05:52→20:20)
[2018-08-02 05:54] LABS: BAND NEUTROPHILS % (MANUAL) 4 % (0-2); BASOPHILS % (MANUAL) 1 % (0-2); EOSINOPHILS % (MANUAL) 4 % (1-6); LYMPHOCYTES % (MANUAL) 9 % (22-44); MAN.DIFF COMMENT-IMPRESSION MANUAL DIFFERENTIAL; MONOCYTES % (MANUAL) 1 % (2-9); PLATELET MORPHOLOGY COMMENT ADEQUATE; SEGMENTED NEUTROPHILS % 81 % (40-70)
[2018-08-02 07:30] VITALS: BP 137/63
[2018-08-02] MEDS: **HM** VIT D3 1000 UNITS PO SCH (09:00)
[2018-08-02] MEDS: ASPIRIN 81MG TAB.CHEW PO SCH (09:29)
[2018-08-02] MEDS: FAMOTIDINE/PF 20 MG/2 ML VIAL IV SCH (09:29)
[2018-08-02] MEDS: LOSARTAN 50 MG TABLET PO SCH (09:29)
[2018-08-02] MEDS: FOLIC ACID/VITAMIN B COMP W-C 1 MG CAPSULE PO SCH (09:29)
[2018-08-02] MEDS: FERROUS SULFATE 325 MG TABLET.DR PO SCH ×2 (09:29→20:20)
[2018-08-02] MEDS: TAMSULOSIN HCL 0.4 MG CAP.ER.24H PO SCH (09:29)
[2018-08-02] MEDS: ENOXAPARIN SODIUM 30 MG/0.3 ML SQ SCH (09:30)
[2018-08-02] MEDS: SEVELAMER HCL 800 MG TABLET PO SCH ×3 (09:35→17:13)
[2018-08-02 11:08] VITALS: BP 128/56
[2018-08-02] MEDS: GENTAMICIN SULFATE 80 MG in SODIUM CHLORIDE 0.9% 100 ML IV NR (15:32)
[2018-08-02 16:00] VITALS: BP 120/56
[2018-08-02 20:00] VITALS: BP 127/58
[2018-08-02] MEDS: ATORVASTATIN CALCIUM 10 MG TABLET PO SCH (20:20)
[2018-08-03] VITALS (7 sets, daily range): BP systolic 119–153; BP diastolic 63–76
[2018-08-03] MEDS: IPRATROPIUM/ALBUTEROL SULFATE 3 ML SOLUTION IH SCH ×6 (01:45→21:24)
[2018-08-03 05:06] LABS: HEMATOCRIT 24.6 % (42-54); MEAN CORPUSCULAR HEMOGLOBIN 31.4 pg (27.0-33.0); MEAN CORPUSCULAR HGB CONC 33.5 g/dL (32.0-36.0); MEAN CORPUSCULAR VOLUME 93.7 fL (79-99); PLATELET COUNT (AUTO) 300 K/uL (130-400); RED BLOOD CELL COUNT(AUTO) 2.63 MIL/uL (4.50-6.20); RED CELL DISTRIBUTION WIDTH 15.8 % (11.0-15.5); WHITE BLOOD COUNT (AUTO) 12.7 K/uL (4.8-10.8)
[2018-08-03] MEDS: INSULIN R PO SS1 SQ SCH ×4 (06:09→20:41)
[2018-08-03] MEDS: CEFTAROLINE FOSAMIL ACETATE IV SCH ×2 (06:14→18:43)
[2018-08-03] MEDS: SODIUM CHLORIDE 0.9% IV SCH ×2 (06:14→18:43)
[2018-08-03 06:27] LABS: ALBUMIN 2.4 g/dL (3.5-5.0); BILIRUBIN,DIRECT 0.2 mg/dL (0.0-0.3); BILIRUBIN,TOTAL 0.5 mg/dL (0.2-1.0); CREATININE 5.8 mg/dL (0.5-1.5); POTASSIUM 3.8 mmol/L (3.5-5.1); TOTAL PROTEIN, SERUM 6.4 g/dL (6.0-8.3)
[2018-08-03] MEDS: **HM** VIT D3 1000 UNITS PO SCH (09:00)
[2018-08-03] MEDS: FERROUS SULFATE 325 MG TABLET.DR PO SCH ×2 (09:48→20:37)
[2018-08-03] MEDS: LOSARTAN 50 MG TABLET PO SCH (09:48)
[2018-08-03] MEDS: FAMOTIDINE/PF 20 MG/2 ML VIAL IV SCH (09:48)
[2018-08-03] MEDS: SEVELAMER HCL 800 MG TABLET PO SCH ×3 (09:48→16:56)
[2018-08-03] MEDS: ASPIRIN 81MG TAB.CHEW PO SCH (09:48)
[2018-08-03] MEDS: TAMSULOSIN HCL 0.4 MG CAP.ER.24H PO SCH (09:48)
[2018-08-03] MEDS: FOLIC ACID/VITAMIN B COMP W-C 1 MG CAPSULE PO SCH (09:48)
[2018-08-03] MEDS: ENOXAPARIN SODIUM 30 MG/0.3 ML SQ SCH (09:49)
[2018-08-03] MEDS: ATORVASTATIN CALCIUM 10 MG TABLET PO SCH (20:37)
[2018-08-04] VITALS (18 sets, daily range): BP systolic 116–163; BP diastolic 59–77
[2018-08-04] MEDS: IPRATROPIUM/ALBUTEROL SULFATE 3 ML SOLUTION IH SCH ×6 (02:31→21:45)
[2018-08-04] MEDS: SODIUM CHLORIDE 0.9% IV SCH ×2 (05:40→17:46)
[2018-08-04] MEDS: INSULIN R PO SS1 SQ SCH ×4 (05:40→21:00)
[2018-08-04] MEDS: CEFTAROLINE FOSAMIL ACETATE IV SCH ×2 (05:40→17:46)
[2018-08-04] MEDS: SEVELAMER HCL 800 MG TABLET PO SCH ×3 (08:00→16:35)
[2018-08-04] MEDS: ENOXAPARIN SODIUM 30 MG/0.3 ML SQ SCH (09:00)
[2018-08-04] MEDS: **HM** VIT D3 1000 UNITS PO SCH (09:00)
[2018-08-04] MEDS: TAMSULOSIN HCL 0.4 MG CAP.ER.24H PO SCH (10:47)
[2018-08-04] MEDS: LOSARTAN 50 MG TABLET PO SCH (10:47)
[2018-08-04] MEDS: ASPIRIN 81MG TAB.CHEW PO SCH (10:47)
[2018-08-04] MEDS: FOLIC ACID/VITAMIN B COMP W-C 1 MG CAPSULE PO SCH (10:47)
[2018-08-04] MEDS: FAMOTIDINE/PF 20 MG/2 ML VIAL IV SCH (10:47)
[2018-08-04] MEDS: FERROUS SULFATE 325 MG TABLET.DR PO SCH ×2 (10:48→21:00)
[2018-08-04] MEDS: GENTAMICIN SULFATE 80 MG in SODIUM CHLORIDE 0.9% 100 ML IV NR (15:00)
[2018-08-04] MEDS: ATORVASTATIN CALCIUM 10 MG TABLET PO SCH (21:00)
[2018-08-05] MEDS: IPRATROPIUM/ALBUTEROL SULFATE 3 ML SOLUTION IH SCH ×4 (01:14→14:24)
[2018-08-05 03:44] VITALS: BP 122/54
[2018-08-05] MEDS: CEFTAROLINE FOSAMIL ACETATE IV SCH (06:16)
[2018-08-05] MEDS: SODIUM CHLORIDE 0.9% IV SCH (06:16)
[2018-08-05] MEDS: INSULIN R PO SS1 SQ SCH ×2 (06:16→11:30)
[2018-08-05 08:00] VITALS: BP 133/73
[2018-08-05] MEDS: **HM** VIT D3 1000 UNITS PO SCH (08:09)
[2018-08-05] MEDS: ENOXAPARIN SODIUM 30 MG/0.3 ML SQ SCH ×2 (09:00→12:59)
[2018-08-05] MEDS: SEVELAMER HCL 800 MG TABLET PO SCH (11:57)
[2018-08-05 12:00] VITALS: BP 149/71
[2018-08-05] MEDS: TAMSULOSIN HCL 0.4 MG CAP.ER.24H PO SCH (12:33)
[2018-08-05] MEDS: FOLIC ACID/VITAMIN B COMP W-C 1 MG CAPSULE PO SCH (12:34)
[2018-08-05] MEDS: FERROUS SULFATE 325 MG TABLET.DR PO SCH (12:34)
[2018-08-05] MEDS: FAMOTIDINE/PF 20 MG/2 ML VIAL IV SCH (12:35)
[2018-08-05] MEDS: ASPIRIN 81MG TAB.CHEW PO SCH (12:35)
[2018-08-05] MEDS: LOSARTAN 50 MG TABLET PO SCH (12:35)
[2018-08-05] MEDS ORDERED: INSU100V3 SQ (13:12)
[2018-08-05] MEDS ORDERED: ENOX30DI4 SQ (13:12)
[2018-08-05 16:00] VITALS: BP 126/83
== END 2018-08-05 16:10 | DRG 871 ==
LOC: EDH 20:28 → OBSVTOIN 23:03 → INTOOBSV 23:03 → EDHIP 23:03 → 3DH 07-21 00:05
PROVIDERS: ADMIT Internal Medicine Nephrology; ATTEND Internal Medicine Nephrology
PROC: 5A1D70Z Performance of Urinary Filtration, Intermittent, Less than 6 Hours Per Day (ICD-10-PCS; principal; 2018-07-21)
PROC: 5A1D70Z Performance of Urinary Filtration, Intermittent, Less than 6 Hours Per Day (ICD-10-PCS; 2018-07-24)
PROC: B24BZZ4 Ultrasonography of Heart with Aorta, Transesophageal (ICD-10-PCS; 2018-07-27)
PROC: 5A1D70Z Performance of Urinary Filtration, Intermittent, Less than 6 Hours Per Day (ICD-10-PCS; 2018-07-28)
PROC: 5A1D70Z Performance of Urinary Filtration, Intermittent, Less than 6 Hours Per Day (ICD-10-PCS; 2018-07-31)
PROC: 5A1D70Z Performance of Urinary Filtration, Intermittent, Less than 6 Hours Per Day (ICD-10-PCS; 2018-08-02)
PROC: 5A1D70Z Performance of Urinary Filtration, Intermittent, Less than 6 Hours Per Day (ICD-10-PCS; 2018-08-04)
DX: A41.02 Sepsis due to Methicillin resistant Staphylococcus aureus (principal); J18.9 Pneumonia, unspecified organism; N18.6 End stage renal disease; G06.1 Intraspinal abscess and granuloma; I12.0 Hypertensive chronic kidney disease with stage 5 chronic kidney disease or end stage renal disease; M46.24 Osteomyelitis of vertebra, thoracic region; I69.354 Hemiplegia and hemiparesis following cerebral infarction affecting left non-dominant side; N39.0 Urinary tract infection, site not specified; J44.0 Chronic obstructive pulmonary disease with (acute) lower respiratory infection; D64.9 Anemia, unspecified; Z99.2 Dependence on renal dialysis; D89.9 Disorder involving the immune mechanism, unspecified; M46.44 Discitis, unspecified, thoracic region; E11.22 Type 2 diabetes mellitus with diabetic chronic kidney disease; E11.21 Type 2 diabetes mellitus with diabetic nephropathy; E11.51 Type 2 diabetes mellitus with diabetic peripheral angiopathy without gangrene; E66.01 Morbid (severe) obesity due to excess calories; E78.5 Hyperlipidemia, unspecified; Z91.19 Patient's noncompliance with other medical treatment and regimen; I25.10 Atherosclerotic heart disease of native coronary artery without angina pectoris; Z74.01 Bed confinement status; R65.20 Severe sepsis without septic shock; Z79.2 Long term (current) use of antibiotics
CPT/HCPCS: 36415; 70450; 71045; 71046; 71260; 72146; 72148; 80048; 80053; 80076; 80170; 80202; 81001; 82550; 82553; 82948; 83605; 83874; 84484; 85025; 85027; 85610; 85730; 87040; 87071; 87077; 87088; 87186; 87205; 87804; 90935; 93005; 93306; 93313; 94640; 94664; 97039; A6453; J0712; J1580; J1650; J2250; J2543; J3010; J3370; J3490; J7030; Q9967

== ENCOUNTER → 2018-12-25 | Outpatient (CLI) | payer MEDICARE ==
[~2018-12-25] MED LIST changes: +ENOX30DI4 SQ; +FOLI0.8T22 PO; +INSU100V3 SQ; -LOSA50TA25 PO; +LOSA50TA64 PO
[2018-12-25 17:10] VITALS: BP 133/76
== END | disposition home or self-care (01) ==
LOC: WHH 15:00
PROVIDERS: ATTEND Family Medicine
DX: E11.622 Type 2 diabetes mellitus with other skin ulcer (principal); L89.322 Pressure ulcer of left buttock, stage 2; L89.312 Pressure ulcer of right buttock, stage 2; L89.159 Pressure ulcer of sacral region, unspecified stage; L89.899 Pressure ulcer of other site, unspecified stage; L98.411 Non-pressure chronic ulcer of buttock limited to breakdown of skin; L98.492 Non-pressure chronic ulcer of skin of other sites with fat layer exposed; E78.5 Hyperlipidemia, unspecified; E11.69 Type 2 diabetes mellitus with other specified complication; M46.24 Osteomyelitis of vertebra, thoracic region; E11.21 Type 2 diabetes mellitus with diabetic nephropathy; E11.22 Type 2 diabetes mellitus with diabetic chronic kidney disease; I12.0 Hypertensive chronic kidney disease with stage 5 chronic kidney disease or end stage renal disease; N18.6 End stage renal disease; I25.10 Atherosclerotic heart disease of native coronary artery without angina pectoris; Z87.891 Personal history of nicotine dependence; Z99.2 Dependence on renal dialysis
CPT/HCPCS: 11042; 82948 ×2; A4450; G0463

== ENCOUNTER → 2019-01-01 | Outpatient (CLI) | payer MEDICARE ==
[~2019-01-01] MED LIST changes: +LIDOCAINE/PRILOCAINE CREAM 5GM TUBE TP ONE
[2019-01-01 15:59] VITALS: BP 132/61
== END | disposition home or self-care (01) ==
LOC: WHH 14:40
PROVIDERS: ATTEND Family Medicine
DX: E11.622 Type 2 diabetes mellitus with other skin ulcer (principal); L89.322 Pressure ulcer of left buttock, stage 2; L89.312 Pressure ulcer of right buttock, stage 2; L98.411 Non-pressure chronic ulcer of buttock limited to breakdown of skin; L98.491 Non-pressure chronic ulcer of skin of other sites limited to breakdown of skin; E11.22 Type 2 diabetes mellitus with diabetic chronic kidney disease; I12.0 Hypertensive chronic kidney disease with stage 5 chronic kidney disease or end stage renal disease; N18.6 End stage renal disease; E11.21 Type 2 diabetes mellitus with diabetic nephropathy; I25.10 Atherosclerotic heart disease of native coronary artery without angina pectoris; Z99.2 Dependence on renal dialysis; E78.5 Hyperlipidemia, unspecified; M46.24 Osteomyelitis of vertebra, thoracic region; Z87.891 Personal history of nicotine dependence
CPT/HCPCS: 11042; A6213; J3490

== ENCOUNTER 2019-01-05 21:40 | Emergency (ER) | payer MEDICARE ==
[~2019-01-05 21:40] MED LIST changes: -LIDOCAINE/PRILOCAINE CREAM 5GM TUBE TP ONE
[2019-01-05] MEDS ORDERED: IPRATROPIUM/ALBUTEROL SULFATE 3 ML SOLUTION IH ONE (22:38)
[2019-01-05 23:20] LABS: BASOPHILS % (AUTO) 1.1 % (0.0-5.0); EOSINOPHILS % (AUTO) 5.2 % (0.0-8.0); HEMATOCRIT 34.7 % (42-54); LYMPHOCYTES % (AUTO) 27.3 % (21.0-51.0); MEAN CORPUSCULAR HEMOGLOBIN 29.1 pg (27.0-33.0); MEAN CORPUSCULAR HGB CONC 32.2 g/dL (32.0-36.0); MEAN CORPUSCULAR VOLUME 90.4 fL (79-99); MONOCYTES % (AUTO) 9.7 % (3.0-13.0); NEUTROPHILS % (AUTO) 56.7 % (40.0-77.0); PLATELET COUNT (AUTO) 218 K/uL (130-400); RED BLOOD CELL COUNT(AUTO) 3.84 MIL/uL (4.50-6.20); RED CELL DISTRIBUTION WIDTH 20.4 % (11.0-15.5); WHITE BLOOD COUNT (AUTO) 7.4 K/uL (4.8-10.8)
[2019-01-05 23:35] LABS: CREATININE 2.2 mg/dL (0.5-1.5); POTASSIUM 3.5 mmol/L (3.5-5.1)
[2019-01-05 23:42] LABS: ALBUMIN 2.8 g/dL (3.5-5.0); BILIRUBIN,TOTAL 0.7 mg/dL (0.2-1.0); TOTAL PROTEIN, SERUM 6.1 g/dL (6.0-8.3)
[2019-01-06] MEDS ORDERED: MORPHINE SULFATE 4 MG/1ML SYG ONE (00:17)
[2019-01-06] MEDS ORDERED: ONDANSETRON HCL 4 MG/2 ML VIAL ONE (00:17)
== END 2019-01-06 04:05 | disposition home or self-care (01) ==
LOC: EDH 21:40
DX: K52.9 Noninfective gastroenteritis and colitis, unspecified (principal); E11.22 Type 2 diabetes mellitus with diabetic chronic kidney disease; N18.6 End stage renal disease; I12.0 Hypertensive chronic kidney disease with stage 5 chronic kidney disease or end stage renal disease; Z86.73 Personal history of transient ischemic attack (TIA), and cerebral infarction without residual deficits; Z99.2 Dependence on renal dialysis; Z87.891 Personal history of nicotine dependence
CPT/HCPCS: 36415; 71045; 74176; 80053; 83690; 84484 ×2; 85025; 93005 ×2; 94640; 96374; 96375; 99284; J2270; J2405

== ENCOUNTER → 2019-01-08 | Outpatient (CLI) | payer MEDICARE ==
[~2019-01-08] MED LIST changes: +LIDOCAINE HCL 4% LTA SOL 4 ML VIAL TP ONE
[2019-01-08 16:55] VITALS: BP 128/69
== END | disposition home or self-care (01) ==
LOC: WHH 15:00
PROVIDERS: ATTEND Family Medicine
DX: E11.622 Type 2 diabetes mellitus with other skin ulcer (principal); L89.312 Pressure ulcer of right buttock, stage 2; L98.411 Non-pressure chronic ulcer of buttock limited to breakdown of skin; E11.22 Type 2 diabetes mellitus with diabetic chronic kidney disease; I12.0 Hypertensive chronic kidney disease with stage 5 chronic kidney disease or end stage renal disease; N18.6 End stage renal disease; E11.69 Type 2 diabetes mellitus with other specified complication; M46.24 Osteomyelitis of vertebra, thoracic region; E11.21 Type 2 diabetes mellitus with diabetic nephropathy; I25.10 Atherosclerotic heart disease of native coronary artery without angina pectoris; E78.5 Hyperlipidemia, unspecified; Z99.2 Dependence on renal dialysis; Z87.891 Personal history of nicotine dependence
CPT/HCPCS: 82948; A6213; G0463

== ENCOUNTER → 2019-01-22 | Outpatient (CLI) | payer MEDICARE ==
[~2019-01-22] MED LIST changes: -LIDOCAINE HCL 4% LTA SOL 4 ML VIAL TP ONE
[2019-01-22 16:32] VITALS: BP 152/63
== END | disposition home or self-care (01) ==
LOC: WHH 15:00
PROVIDERS: ATTEND Family Medicine
DX: E11.622 Type 2 diabetes mellitus with other skin ulcer (principal); L89.312 Pressure ulcer of right buttock, stage 2; L98.412 Non-pressure chronic ulcer of buttock with fat layer exposed; L89.153 Pressure ulcer of sacral region, stage 3; L98.492 Non-pressure chronic ulcer of skin of other sites with fat layer exposed; E11.21 Type 2 diabetes mellitus with diabetic nephropathy; E11.22 Type 2 diabetes mellitus with diabetic chronic kidney disease; I12.0 Hypertensive chronic kidney disease with stage 5 chronic kidney disease or end stage renal disease; N18.6 End stage renal disease; I25.10 Atherosclerotic heart disease of native coronary artery without angina pectoris; E78.5 Hyperlipidemia, unspecified; E11.69 Type 2 diabetes mellitus with other specified complication; M46.24 Osteomyelitis of vertebra, thoracic region; Z87.891 Personal history of nicotine dependence; Z99.2 Dependence on renal dialysis; Z86.73 Personal history of transient ischemic attack (TIA), and cerebral infarction without residual deficits
CPT/HCPCS: 11042; A6210; A6213